=== PATIENT | female | born 1955 | race Caucasian/White ===

== ENCOUNTER → 2017-10-02 | Outpatient (CLI) | payer OTHER | LOC: FIMAGING 15:45 | PROVIDERS: ATTEND Nurse Practitioner Adult Health | DX: Z12.31 Encounter for screening mammogram for malignant neoplasm of breast (principal) | CPT/HCPCS: G0202 ==

== ENCOUNTER → 2018-06-05 | Outpatient (CLI) | payer OTHER | LOC: FIMAGING 15:50 | PROVIDERS: ATTEND Nurse Practitioner Adult Health | DX: M25.572 Pain in left ankle and joints of left foot (principal); M85.872 Other specified disorders of bone density and structure, left ankle and foot ==

== ENCOUNTER → 2018-12-04 | Outpatient (CLI) | payer OTHER | LOC: FIMAGING 11:27 | PROVIDERS: ATTEND Internal Medicine Hematology & Oncology | DX: Z12.31 Encounter for screening mammogram for malignant neoplasm of breast (principal); Z80.3 Family history of malignant neoplasm of breast ==